=== PATIENT | female | born 1955 | race African-American/Black ===

== ENCOUNTER 2017-04-17 17:32 | Emergency (ER) | payer OTHER ==
[~2017-04-17] VITALS: Ht 165.1 cm; Wt 50.0 kg
[~2017-04-17 17:32] MED LIST: AMLO10TA80 PO; ASPI-1159 PO; ATOR10TA69 PO; FERR324T4 PO; FOLI-43 PO; LEVE500T19 PO; TRIA1TAB92 PO
[2017-04-17] MEDS ORDERED: LIDOCAINE HCL 1%/EPI 1:200,000 30 ML VIAL MC ONE (18:30)
[2017-04-17] MEDS ORDERED: BACITRACIN ZINC OINT UDPKT TOP ONE (18:30)
[2017-04-17] MEDS ORDERED: LIDOCAINE/EPINEPHR/TETRACAINE 3ML TP ONE (18:30)
[2017-04-17 19:25] VITALS: BP 133/87
== END 2017-04-17 21:51 | disposition home or self-care (01) ==
LOC: ER 18:14
DX: S92.812A Other fracture of left foot, initial encounter for closed fracture (principal); S01.112A Laceration without foreign body of left eyelid and periocular area, initial encounter; F17.200 Nicotine dependence, unspecified, uncomplicated; I10 Essential (primary) hypertension; R56.9 Unspecified convulsions; I69.354 Hemiplegia and hemiparesis following cerebral infarction affecting left non-dominant side; Z90.49 Acquired absence of other specified parts of digestive tract; Z88.0 Allergy status to penicillin; W01.0XXA Fall on same level from slipping, tripping and stumbling without subsequent striking against object, initial encounter; Y93.89 Activity, other specified; Y99.8 Other external cause status; Y92.89 Other specified places as the place of occurrence of the external cause
CPT/HCPCS: 12014; 29515; 70450; 73630; 99284; X7700; Z7610

== ENCOUNTER 2017-05-04 10:42 | Emergency (ER) | payer OTHER ==
[~2017-05-04] VITALS: Ht 165.1 cm; Wt 59.0 kg
[2017-05-04 11:02] VITALS: BP 138/85
== END 2017-05-04 14:20 | disposition left against medical advice (07) ==
LOC: ER 13:08
DX: Z53.21 Procedure and treatment not carried out due to patient leaving prior to being seen by health care provider (principal)

== ENCOUNTER 2017-05-05 07:20 | Emergency (ER) | payer OTHER ==
[~2017-05-05] VITALS: Ht 165.1 cm; Wt 57.0 kg
[2017-05-05 07:48] VITALS: BP 139/92
[2017-05-05] MEDS ORDERED: ACETAMINOPHEN 325MG TABLET PO STA (07:52)
[2017-05-05] MEDS ORDERED: ONDANSETRON 4MG ODT PO ONE (08:00)
[2017-05-05 08:25] LABS: CLARITY URINE CLEAR (CLEAR); COLOR URINE YELLOW (YELLOW); KETONES URINE TRACE (NEGATIVE); LEUKOCYTE ESTERASE URINE NEGATIVE (NEGATIVE); NITRITE URINE NEGATIVE (NEGATIVE); OCCULT BLOOD URINE NEGATIVE (NEGATIVE); PROTEIN URINE NEGATIVE (NEGATIVE); SPECIFIC GRAVITY URINE 1.019 (1.005-1.030)
[2017-05-05 08:53] LABS: BASOPHILS % 1.1 % (0.0-2.0); EOSINOPHILS % 2.1 % (0.0-5.0); HEMATOCRIT. 39.3 % (36.0-48.0); HEMOGLOBIN. 13.1 g/dL (12.0-16.0); LYMPHOCYTES % 18.4 % (20.0-50.0); MEAN CORPUSCULAR HEMOGLOBIN 29.9 pg (28.0-32.0); MEAN CORPUSCULAR VOLUME 89.9 fL (81.0-99.0); MEAN PLATELET VOLUME 8.3 fl (7.4-10.4); MONOCYTES % 6.5 % (2.0-8.0); NEUTROPHILS % 71.9 % (40.0-76.0); PLATELET 210 x1000/uL (130-400); RED BLOOD CELL COUNT 4.37 mill/uL (4.2-5.4); RED CELL DISTRIBUTION WIDTH 17.1 % (11.6-14.6)
[2017-05-05 09:00] LABS: PROTHROMBIN TIME 10.3 sec (9.4-11.6)
[2017-05-05 09:15] LABS: CHLORIDE 106 mEq/L (98-107)
== END 2017-05-05 14:10 | disposition home or self-care (01) ==
LOC: ER 07:56
DX: S92.812D Other fracture of left foot, subsequent encounter for fracture with routine healing (principal); S01.112D Laceration without foreign body of left eyelid and periocular area, subsequent encounter; R19.7 Diarrhea, unspecified; R56.9 Unspecified convulsions; F17.200 Nicotine dependence, unspecified, uncomplicated; I10 Essential (primary) hypertension; E87.6 Hypokalemia; Z86.73 Personal history of transient ischemic attack (TIA), and cerebral infarction without residual deficits; Z88.0 Allergy status to penicillin; Z90.49 Acquired absence of other specified parts of digestive tract; W18.39XD Other fall on same level, subsequent encounter; Y93.89 Activity, other specified; Y99.8 Other external cause status; Y92.89 Other specified places as the place of occurrence of the external cause
CPT/HCPCS: 36415; 73502; 73630; 80053; 81003; 83690; 85025; 85610; 99285; Q0162; Z7610

== ENCOUNTER 2017-11-30 14:13 | Emergency (ER) | payer OTHER ==
[~2017-11-30] VITALS: Ht 165.1 cm; Wt 48.0 kg
[~2017-11-30 14:13] MED LIST changes: +ASCO-339 MT; -FERR324T4 PO; +FERR325T6 MT; +LORA10TA7 MT; +LOSA25TA12 MT; +OMEP40CA34 MT; +THIA100T72 MT
[2017-11-30] MEDS ORDERED: SODIUM CHLORIDE 0.9% 1,000 ML IV ONE ×2 (19:33→23:00)
[2017-11-30] MEDS ORDERED: ONDANSETRON HCL 4MG/2ML INJ IV STA (19:33)
[2017-11-30] MEDS ORDERED: ACETAMINOPHEN 325MG TABLET PO STA (19:33)
[2017-11-30] MEDS ORDERED: LEVETIRACETAM 500MG PREMIX 100 ML IV ONE (19:45)
[2017-11-30 20:14] LABS: BASOPHILS % 0.5 % (0.0-2.0); HEMATOCRIT. 35.7 % (36.0-48.0); LYMPHOCYTES % 10.9 % (20.0-50.0); MEAN CORPUSCULAR HEMOGLOBIN 32.2 pg (28.0-32.0); MEAN CORPUSCULAR VOLUME 95.9 fL (81.0-99.0); MEAN PLATELET VOLUME 8.5 fl (7.4-10.4); NEUTROPHILS % 79.6 % (40.0-76.0); PLATELET 191 x1000/uL (130-400); RED BLOOD CELL COUNT 3.72 mill/uL (4.2-5.4); RED CELL DISTRIBUTION WIDTH 16.3 % (11.6-14.6)
[2017-11-30 20:20] LABS: CHLORIDE 100 mEq/L (98-107)
[2017-12-01 02:05] LABS: CLARITY URINE CLEAR (CLEAR); COLOR URINE YELLOW (YELLOW); KETONES URINE NEGATIVE (NEGATIVE); LEUKOCYTE ESTERASE URINE 1+ (NEGATIVE); NITRITE URINE NEGATIVE (NEGATIVE); OCCULT BLOOD URINE NEGATIVE (NEGATIVE); PH URINE 7.5 (4.5-8.0); PROTEIN URINE NEGATIVE (NEGATIVE); SPECIFIC GRAVITY URINE 1.007 (1.005-1.030); UROBILINOGEN URINE 0.2 E.U./dL (0.2-1.0)
[2017-12-01 02:36] VITALS: BP 127/79
== END 2017-12-01 02:43 | disposition home or self-care (01) ==
LOC: ER 14:13
DX: G40.909 Epilepsy, unspecified, not intractable, without status epilepticus (principal); B34.9 Viral infection, unspecified; J02.9 Acute pharyngitis, unspecified; R11.0 Nausea; I10 Essential (primary) hypertension; F17.200 Nicotine dependence, unspecified, uncomplicated; Z86.73 Personal history of transient ischemic attack (TIA), and cerebral infarction without residual deficits; Z90.49 Acquired absence of other specified parts of digestive tract; Z88.0 Allergy status to penicillin; Z79.899 Other long term (current) drug therapy
CPT/HCPCS: 36415; 70450; 71045; 80053; 81003; 83605; 85025; 87040; 87804; 96365; 96375; 99285; J1953; J2405; J7030; 99291

== ENCOUNTER 2018-01-22 13:27 | Emergency (ER) | payer OTHER ==
[~2018-01-22] VITALS: Ht 165.1 cm; Wt 48.7 kg
[2018-01-22] MEDS ORDERED: KETOROLAC 30MG/ML VIAL IM ONE (14:00)
[2018-01-22 15:06] VITALS: BP 137/95
== END 2018-01-22 15:07 | disposition home or self-care (01) ==
LOC: ER 13:27
DX: S60.222A Contusion of left hand, initial encounter (principal); S60.212A Contusion of left wrist, initial encounter; F17.200 Nicotine dependence, unspecified, uncomplicated; I10 Essential (primary) hypertension; W01.0XXA Fall on same level from slipping, tripping and stumbling without subsequent striking against object, initial encounter; Y93.89 Activity, other specified; Y92.89 Other specified places as the place of occurrence of the external cause; Z88.0 Allergy status to penicillin; Z79.82 Long term (current) use of aspirin; Z86.73 Personal history of transient ischemic attack (TIA), and cerebral infarction without residual deficits; Z90.49 Acquired absence of other specified parts of digestive tract
CPT/HCPCS: 73110; 73130; 96372; 99283; J1885

== ENCOUNTER 2018-05-18 22:17 | Emergency (ER) | payer OTHER ==
[~2018-05-18] VITALS: Ht 165.1 cm; Wt 48.0 kg
[2018-05-19] MEDS ORDERED: SODIUM CHLORIDE 0.9% 1,000 ML IV ONE (00:22)
[2018-05-19] MEDS ORDERED: LEVETIRACETAM 500MG PREMIX 100 ML IV ONE (00:30)
[2018-05-19] MEDS ORDERED: DIPHENOXYLATE/ATROPINE 2.5/0.025MG TABLET PO ONE (00:30)
[2018-05-19 00:40] LABS: CHLORIDE 102 mEq/L (98-107)
[2018-05-19 00:42] LABS: BASOPHILS % 1.2 % (0.0-2.0); EOSINOPHILS % 1.2 % (0.0-5.0); HEMATOCRIT. 35.6 % (36.0-48.0); HEMOGLOBIN. 12.2 g/dL (12.0-16.0); LYMPHOCYTES % 34.9 % (20.0-50.0); MEAN CORPUSCULAR HEMOGLOBIN 32.9 pg (28.0-32.0); MEAN CORPUSCULAR VOLUME 96.2 fL (81.0-99.0); MEAN PLATELET VOLUME 8.6 fl (7.4-10.4); MONOCYTES % 8.3 % (2.0-8.0); NEUTROPHILS % 54.4 % (40.0-76.0); PLATELET 163 x1000/uL (130-400); RED CELL DISTRIBUTION WIDTH 13.1 % (11.6-14.6)
[2018-05-19 03:55] VITALS: BP 119/61
== END 2018-05-19 03:56 | disposition home or self-care (01) ==
LOC: ER 22:17
DX: R19.7 Diarrhea, unspecified (principal); G40.909 Epilepsy, unspecified, not intractable, without status epilepticus; I10 Essential (primary) hypertension; F17.200 Nicotine dependence, unspecified, uncomplicated; I69.352 Hemiplegia and hemiparesis following cerebral infarction affecting left dominant side; Z90.49 Acquired absence of other specified parts of digestive tract
CPT/HCPCS: 36415; 80053; 85025; 96365; 96366; 99283; J1953; J7030

== ENCOUNTER 2020-06-24 00:34 | Emergency (ER) | payer OTHER ==
[~2020-06-24] VITALS: Ht 167.6 cm; Wt 68.0 kg
[~2020-06-24 00:34] MED LIST changes: -ASPI-1159 PO; +ASPI-1497 PO; -LOSA25TA12 MT; +LOSA25TA26 MT; +OMEP40CA12 MT; -OMEP40CA34 MT
[2020-06-24] MEDS ORDERED: BACITRACIN ZINC OINT UDPKT TOP ONE (01:45)
[2020-06-24] MEDS ORDERED: LIDOCAINE HCL/EPINEPHRINE 1%-EPI 1:100,000 10 ML VIAL IJ ONE (01:45)
[2020-06-24] MEDS ORDERED: TETANUS, DIPHTHERIA, PERTUSSIS VAC/PF 0.5ML (>7YR OLD) IM ONE (01:45)
[2020-06-24] MEDS ORDERED: LIDOCAINE HCL/EPINEPHRINE 1%-EPI 1:100,000 20 ML VIAL INFIL NR (02:15)
[2020-06-24 05:30] VITALS: BP 118/82
== END 2020-06-24 06:04 | disposition home or self-care (01) ==
LOC: ER 00:34
DX: S01.01XA Laceration without foreign body of scalp, initial encounter (principal); I10 Essential (primary) hypertension; I69.352 Hemiplegia and hemiparesis following cerebral infarction affecting left dominant side; I25.2 Old myocardial infarction; Z79.82 Long term (current) use of aspirin; Z88.0 Allergy status to penicillin; W01.0XXA Fall on same level from slipping, tripping and stumbling without subsequent striking against object, initial encounter; Y93.89 Activity, other specified; Y92.59 Other trade areas as the place of occurrence of the external cause
CPT/HCPCS: 12002; 70450; 90471; 90715; 93005; 99284; J3490; Z7610

== ENCOUNTER 2020-07-13 18:39 | Emergency (ER) | payer OTHER ==
[~2020-07-13] VITALS: Ht 172.7 cm; Wt 59.0 kg
[2020-07-13 21:56] LABS: BASOPHILS % 0.7 % (0.0-2.0); EOSINOPHILS % 1.5 % (0.0-5.0); HEMATOCRIT. 35.5 % (36.0-48.0); HEMOGLOBIN. 11.7 g/dL (12.0-16.0); LYMPHOCYTES % 26.7 % (20.0-50.0); MEAN CORPUSCULAR HEMOGLOBIN 29.6 pg (28.0-32.0); MEAN CORPUSCULAR VOLUME 89.4 fL (81.0-99.0); MEAN PLATELET VOLUME 7.6 fl (7.4-10.4); MONOCYTES % 7.1 % (2.0-8.0); PLATELET 251 x1000/uL (130-400); RED BLOOD CELL COUNT 3.97 mill/uL (4.2-5.4); RED CELL DISTRIBUTION WIDTH 17.2 % (11.6-14.6)
[2020-07-13 22:04] LABS: CHLORIDE 102 mEq/L (98-107)
[2020-07-13 22:09] LABS: ETHANOL BLOOD 225 mg/dL
[2020-07-13 23:28] LABS: CANNABINOID URINE SCREEN NEGATIVE (NEGATIVE)
[2020-07-13 23:29] LABS: *AMPHETAMINES SCREEN URINE NEGATIVE (NEGATIVE); *BARBITURATES SCREEN URINE NEGATIVE (NEGATIVE); *BENZODIAZEPINES SCREEN URINE NEGATIVE (NEGATIVE); *COCAINE SCREEN URINE NEGATIVE (NEGATIVE); METHADONE URINE SCREEN NEGATIVE (NEGATIVE); OPIATES URINE SCREEN NEGATIVE (NEGATIVE)
[2020-07-13 23:30] LABS: PHENCYCLIDINE URINE SCREEN NEGATIVE (NEGATIVE)
[2020-07-13] MEDS ORDERED: POTASSIUM CHLORIDE 20MEQ TABLET SR PO NR (23:30)
[2020-07-14 02:55] VITALS: BP 115/60
== END 2020-07-14 03:03 | disposition home or self-care (01) ==
LOC: ER 18:39
DX: R42 Dizziness and giddiness (principal); F17.200 Nicotine dependence, unspecified, uncomplicated; I25.2 Old myocardial infarction; I10 Essential (primary) hypertension; E11.9 Type 2 diabetes mellitus without complications; Z88.0 Allergy status to penicillin; Z79.899 Other long term (current) drug therapy; Z86.73 Personal history of transient ischemic attack (TIA), and cerebral infarction without residual deficits; Z79.82 Long term (current) use of aspirin
CPT/HCPCS: 36415; 71045; 80053; 80305; 80320; 84484; 85025; 93005; 99285; G0480

== ENCOUNTER 2021-07-29 15:33 | Inpatient (IN) | payer OTHER ==
[~2021-07-29] VITALS: Ht 165.1 cm; Wt 66.2 kg
[~2021-07-29 15:33] MED LIST changes: -OMEP40CA12 MT; +OMEP40CA20 MT
[2021-07-29] MEDS ORDERED: ACETAMINOPHEN 325MG TABLET PO ONE (18:00)
[2021-07-29 21:17] LABS: BASOPHILS % 0.6 % (0.0-2.0); EOSINOPHILS % 1.2 % (0.0-5.0); HEMATOCRIT. 37.5 % (36.0-48.0); HEMOGLOBIN. 12.4 g/dL (12.0-16.0); LYMPHOCYTES % 27.7 % (20.0-50.0); MEAN CORPUSCULAR HEMOGLOBIN 27.3 pg (28.0-32.0); MEAN CORPUSCULAR VOLUME 82.9 fL (81.0-99.0); MEAN PLATELET VOLUME 8.1 fl (7.4-10.4); MONOCYTES % 6.7 % (2.0-8.0); NEUTROPHILS % 63.8 % (40.0-76.0); PLATELET 266 x1000/uL (130-400); RED BLOOD CELL COUNT 4.52 mill/uL (4.2-5.4); RED CELL DISTRIBUTION WIDTH 13.6 % (11.6-14.6)
[2021-07-29 21:22] LABS: CHLORIDE 103 mEq/L (98-107)
[2021-07-30] MEDS ORDERED: IBUP-2029 MT (00:06)
[2021-07-30] MEDS ORDERED: POTASSIUM CHLORIDE 20MEQ TABLET SR PO ONE (00:15)
[2021-07-30] MEDS ORDERED: POTASSIUM CHLORIDE 20MEQ TABLET SR PO SCH (05:45)
[2021-07-30] MEDS ORDERED: IPRATROPIUM/ALBUTEROL 0.5-3(2.5)MG/3ML NEB HHN PRN (14:30)
[2021-07-30] MEDS ORDERED: ONDANSETRON HCL 4MG/2ML INJ IV PRN (14:30)
[2021-07-30] MEDS ORDERED: DOCUSATE SODIUM 100MG CAPSULE PO PRN (14:30)
[2021-07-30] MEDS ORDERED: HYDRALAZINE 20MG/ML VIAL IV PRN (14:30)
[2021-07-30] MEDS ORDERED: GUAIFENESIN 200MG/10ML SUGAR FREE UDC PO PRN (14:30)
[2021-07-30] MEDS: ENOXAPARIN 40MG/0.4ML SYR SUBCUT SCH (15:22)
[2021-07-30] MEDS ORDERED: HYDRALAZINE 10 MG in SODIUM CHLORIDE 0.9% 49.5 ML IV PRN (16:15)
[2021-07-30 18:48] VITALS: BP 129/89
[2021-07-30 20:00] VITALS: BP 134/83
[2021-07-31] VITALS: BP 126/68
[2021-07-31 04:00] VITALS: BP 145/7
[2021-07-31 07:54] LABS: BASOPHILS % 0.9 % (0.0-2.0); EOSINOPHILS % 1.9 % (0.0-5.0); HEMATOCRIT. 36.3 % (36.0-48.0); HEMOGLOBIN. 11.9 g/dL (12.0-16.0); LYMPHOCYTES % 28.5 % (20.0-50.0); MEAN CORPUSCULAR HEMOGLOBIN 27.4 pg (28.0-32.0); MEAN CORPUSCULAR VOLUME 83.7 fL (81.0-99.0); MEAN PLATELET VOLUME 8.6 fl (7.4-10.4); NEUTROPHILS % 62.7 % (40.0-76.0); PLATELET 271 x1000/uL (130-400); RED BLOOD CELL COUNT 4.34 mill/uL (4.2-5.4); RED CELL DISTRIBUTION WIDTH 13.6 % (11.6-14.6)
[2021-07-31 08:08] LABS: CHLORIDE 105 mEq/L (98-107)
[2021-07-31] MEDS: ENOXAPARIN 40MG/0.4ML SYR SUBCUT SCH (14:30)
[2021-07-31] MEDS ORDERED: NALOXONE HCL 0.4MG/ML VIAL IV PRN (19:15)
[2021-07-31] MEDS ORDERED: TRAMADOL 50MG TABLET PO PRN (19:15)
[2021-07-31] MEDS: NICOTINE 21MG PATCH TD SCH (19:20)
[2021-07-31 20:00] VITALS: BP 148/97
[2021-07-31] MEDS ORDERED: DEXTROSE 50% WATER 50ML SYRINGE IV PRN (20:15)
[2021-07-31] MEDS: BLOOD SUGAR DIAGNOSTIC STRIP TEST SCH (21:00)
[2021-07-31] MEDS: INSULIN GLARGINE 100 UNITS/ML SUBCUT SCH (23:31)
[2021-08-01] VITALS (7 sets, daily range): BP systolic 111–143; BP diastolic 71–98
[2021-08-01] MEDS: BLOOD SUGAR DIAGNOSTIC STRIP TEST SCH ×4 (07:31→20:21)
[2021-08-01] MEDS: NICOTINE 21MG PATCH TD SCH (09:00)
[2021-08-01] MEDS: INSULIN GLARGINE 100 UNITS/ML SUBCUT SCH ×2 (10:38→21:02)
[2021-08-01] MEDS: ENOXAPARIN 40MG/0.4ML SYR SUBCUT SCH (14:57)
[2021-08-01] MEDS: MUPIROCIN 2% OINT 22GM NS SCH (20:48)
[2021-08-01] MEDS: GABAPENTIN 300MG CAPSULE PO SCH (22:29)
[2021-08-02] VITALS: BP 123/72
[2021-08-02] MEDS: GABAPENTIN 300MG CAPSULE PO SCH ×3 (05:26→21:27)
[2021-08-02] MEDS: BLOOD SUGAR DIAGNOSTIC STRIP TEST SCH ×7 (07:54→21:27)
[2021-08-02 08:00] VITALS: BP 93/69
[2021-08-02] MEDS: INSULIN GLARGINE 100 UNITS/ML SUBCUT SCH ×2 (09:29→21:28)
[2021-08-02] MEDS: MUPIROCIN 2% OINT 22GM NS SCH ×2 (09:33→21:28)
[2021-08-02 12:01] VITALS: BP 121/70
[2021-08-02] MEDS ORDERED: DEXTROSE 50% WATER 50ML SYRINGE IV PRN (12:15)
[2021-08-02] MEDS: INSULIN LISPRO 100 UNITS/ML SUBCUT SCH ×3 (13:02→21:00)
[2021-08-02] MEDS: ENOXAPARIN 40MG/0.4ML SYR SUBCUT SCH (15:36)
[2021-08-02 16:00] VITALS: BP 118/97
[2021-08-03] MEDS: GABAPENTIN 300MG CAPSULE PO SCH ×3 (05:25→21:59)
[2021-08-03] MEDS: BLOOD SUGAR DIAGNOSTIC STRIP TEST SCH ×7 (07:35→21:00)
[2021-08-03] MEDS: INSULIN LISPRO 100 UNITS/ML SUBCUT SCH ×4 (07:36→22:15)
[2021-08-03 08:00] VITALS: BP 116/74
[2021-08-03] MEDS: NICOTINE 21MG PATCH TD SCH (09:22)
[2021-08-03] MEDS: MUPIROCIN 2% OINT 22GM NS SCH ×2 (09:23→21:59)
[2021-08-03] MEDS: INSULIN GLARGINE 100 UNITS/ML SUBCUT SCH ×2 (09:24→22:14)
[2021-08-03 12:00] VITALS: BP 105/74
[2021-08-03] MEDS: ENOXAPARIN 40MG/0.4ML SYR SUBCUT SCH (14:00)
[2021-08-03 16:00] VITALS: BP 107/52
[2021-08-03 20:00] VITALS: BP 111/58
[2021-08-04 04:00] VITALS: BP 118/58
[2021-08-04] MEDS: GABAPENTIN 300MG CAPSULE PO SCH ×3 (05:48→21:21)
[2021-08-04] MEDS: BLOOD SUGAR DIAGNOSTIC STRIP TEST SCH ×4 (05:48→21:20)
[2021-08-04 06:48] LABS: BASOPHILS % 0.7 % (0.0-2.0); EOSINOPHILS % 2.9 % (0.0-5.0); HEMATOCRIT. 34.7 % (36.0-48.0); HEMOGLOBIN. 11.4 g/dL (12.0-16.0); LYMPHOCYTES % 35.7 % (20.0-50.0); MEAN CORPUSCULAR HEMOGLOBIN 27.4 pg (28.0-32.0); MEAN CORPUSCULAR VOLUME 83.8 fL (81.0-99.0); MEAN PLATELET VOLUME 8.4 fl (7.4-10.4); NEUTROPHILS % 53.7 % (40.0-76.0); PLATELET 266 x1000/uL (130-400); RED BLOOD CELL COUNT 4.14 mill/uL (4.2-5.4); RED CELL DISTRIBUTION WIDTH 13.6 % (11.6-14.6)
[2021-08-04 07:00] LABS: CHLORIDE 105 mEq/L (98-107)
[2021-08-04] MEDS: INSULIN LISPRO 100 UNITS/ML SUBCUT SCH ×4 (07:50→21:00)
[2021-08-04] MEDS: NICOTINE 21MG PATCH TD SCH (08:49)
[2021-08-04] MEDS: MUPIROCIN 2% OINT 22GM NS SCH ×2 (08:50→21:21)
[2021-08-04] MEDS: INSULIN GLARGINE 100 UNITS/ML SUBCUT SCH ×2 (09:04→21:23)
[2021-08-04] MEDS: ENOXAPARIN 40MG/0.4ML SYR SUBCUT SCH (14:12)
[2021-08-04] MEDS ORDERED: NICO-789 TD (16:25)
[2021-08-04] MEDS ORDERED: INSLIS SUBCUT (16:25)
[2021-08-04] MEDS ORDERED: TRAM50TA3 PO (16:25)
[2021-08-04] MEDS ORDERED: GABA-532 PO (16:25)
[2021-08-04] MEDS ORDERED: LANTUSUD SUBCUT (16:25)
[2021-08-04 20:00] VITALS: BP 125/60
[2021-08-05] VITALS: BP 120/55
[2021-08-05 04:00] VITALS: BP 115/55
[2021-08-05] MEDS: GABAPENTIN 300MG CAPSULE PO SCH ×3 (05:50→21:33)
[2021-08-05] MEDS: INSULIN LISPRO 100 UNITS/ML SUBCUT SCH ×4 (05:52→21:00)
[2021-08-05] MEDS: BLOOD SUGAR DIAGNOSTIC STRIP TEST SCH ×4 (05:52→21:16)
[2021-08-05 06:55] LABS: BASOPHILS % 0.6 % (0.0-2.0); EOSINOPHILS % 2.6 % (0.0-5.0); HEMATOCRIT. 32.8 % (36.0-48.0); HEMOGLOBIN. 10.9 g/dL (12.0-16.0); LYMPHOCYTES % 27.2 % (20.0-50.0); MEAN CORPUSCULAR HEMOGLOBIN 27.7 pg (28.0-32.0); MEAN CORPUSCULAR VOLUME 83.4 fL (81.0-99.0); MEAN PLATELET VOLUME 8.7 fl (7.4-10.4); MONOCYTES % 8.8 % (2.0-8.0); NEUTROPHILS % 60.8 % (40.0-76.0); PLATELET 248 x1000/uL (130-400); RED BLOOD CELL COUNT 3.93 mill/uL (4.2-5.4); RED CELL DISTRIBUTION WIDTH 13.3 % (11.6-14.6)
[2021-08-05 07:17] LABS: CHLORIDE 107 mEq/L (98-107)
[2021-08-05 08:00] VITALS: BP 108/76
[2021-08-05] MEDS: ACETAMINOPHEN 325MG TABLET PO PRN (08:33)
[2021-08-05] MEDS: MUPIROCIN 2% OINT 22GM NS SCH ×2 (08:39→21:32)
[2021-08-05] MEDS: NICOTINE 21MG PATCH TD SCH (08:46)
[2021-08-05] MEDS: INSULIN GLARGINE 100 UNITS/ML SUBCUT SCH ×2 (10:35→21:36)
[2021-08-05 12:00] VITALS: BP 116/82
[2021-08-05] MEDS: ENOXAPARIN 40MG/0.4ML SYR SUBCUT SCH (14:49)
[2021-08-05 16:00] VITALS: BP 115/65
[2021-08-05 20:00] VITALS: BP 107/72
[2021-08-06] VITALS: BP 97/56
[2021-08-06] MEDS: BLOOD SUGAR DIAGNOSTIC STRIP TEST SCH ×4 (06:03→21:29)
[2021-08-06] MEDS: GABAPENTIN 300MG CAPSULE PO SCH ×3 (06:03→21:51)
[2021-08-06] MEDS: INSULIN LISPRO 100 UNITS/ML SUBCUT SCH ×4 (07:50→21:00)
[2021-08-06 08:00] VITALS: BP 111/73
[2021-08-06] MEDS: NICOTINE 21MG PATCH TD SCH (09:00)
[2021-08-06] MEDS: MUPIROCIN 2% OINT 22GM NS SCH (09:27)
[2021-08-06] MEDS: INSULIN GLARGINE 100 UNITS/ML SUBCUT SCH ×2 (10:00→21:52)
[2021-08-06 12:00] VITALS: BP 134/76
[2021-08-06] MEDS: ACETAMINOPHEN 325MG TABLET PO PRN (14:08)
[2021-08-06] MEDS: ENOXAPARIN 40MG/0.4ML SYR SUBCUT SCH (14:08)
[2021-08-06 16:00] VITALS: BP 113/73
[2021-08-06 20:00] VITALS: BP 117/78
[2021-08-07] VITALS: BP 121/79
[2021-08-07 04:00] VITALS: BP 118/68
[2021-08-07] MEDS: BLOOD SUGAR DIAGNOSTIC STRIP TEST SCH ×4 (06:09→21:00)
[2021-08-07] MEDS: GABAPENTIN 300MG CAPSULE PO SCH ×3 (06:10→23:39)
[2021-08-07] MEDS: INSULIN LISPRO 100 UNITS/ML SUBCUT SCH ×4 (07:50→21:00)
[2021-08-07] MEDS: NICOTINE 21MG PATCH TD SCH (09:00)
[2021-08-07] MEDS: INSULIN GLARGINE 100 UNITS/ML SUBCUT SCH ×2 (10:00→23:42)
[2021-08-07] MEDS: ENOXAPARIN 40MG/0.4ML SYR SUBCUT SCH (15:06)
[2021-08-07 16:00] VITALS: BP 120/62
[2021-08-07 20:00] VITALS: BP 134/74
[2021-08-08] VITALS: BP 140/87
[2021-08-08 04:00] VITALS: BP 109/67
[2021-08-08] MEDS: GABAPENTIN 300MG CAPSULE PO SCH ×3 (05:49→21:57)
[2021-08-08] MEDS: BLOOD SUGAR DIAGNOSTIC STRIP TEST SCH ×4 (07:04→21:44)
[2021-08-08] MEDS: INSULIN LISPRO 100 UNITS/ML SUBCUT SCH ×4 (07:04→21:56)
[2021-08-08 08:00] VITALS: BP 104/72
[2021-08-08] MEDS: NICOTINE 21MG PATCH TD SCH (08:41)
[2021-08-08] MEDS: INSULIN GLARGINE 100 UNITS/ML SUBCUT SCH ×2 (10:00→21:57)
[2021-08-08 12:00] VITALS: BP 109/67
[2021-08-08] MEDS: ENOXAPARIN 40MG/0.4ML SYR SUBCUT SCH (13:59)
[2021-08-08 16:00] VITALS: BP 114/68
[2021-08-08 16:52] LABS: BASOPHILS % 0.7 % (0.0-2.0); EOSINOPHILS % 1.7 % (0.0-5.0); HEMOGLOBIN. 9.9 g/dL (12.0-16.0); LYMPHOCYTES % 30.5 % (20.0-50.0); MEAN CORPUSCULAR HEMOGLOBIN 27.9 pg (28.0-32.0); MEAN CORPUSCULAR VOLUME 84.9 fL (81.0-99.0); MEAN PLATELET VOLUME 9.1 fl (7.4-10.4); MONOCYTES % 7.6 % (2.0-8.0); NEUTROPHILS % 59.5 % (40.0-76.0); PLATELET 248 x1000/uL (130-400); RED BLOOD CELL COUNT 3.54 mill/uL (4.2-5.4); RED CELL DISTRIBUTION WIDTH 13.6 % (11.6-14.6)
[2021-08-08 17:09] LABS: CHLORIDE 101 mEq/L (98-107)
[2021-08-09] VITALS: BP 129/79
[2021-08-09 04:00] VITALS: BP 123/71
[2021-08-09] MEDS: GABAPENTIN 300MG CAPSULE PO SCH ×3 (06:27→22:18)
[2021-08-09] MEDS: BLOOD SUGAR DIAGNOSTIC STRIP TEST SCH ×4 (06:27→21:00)
[2021-08-09] MEDS: INSULIN LISPRO 100 UNITS/ML SUBCUT SCH ×4 (07:50→22:19)
[2021-08-09 08:00] VITALS: BP 104/61
[2021-08-09] MEDS: NICOTINE 21MG PATCH TD SCH (09:00)
[2021-08-09] MEDS: INSULIN GLARGINE 100 UNITS/ML SUBCUT SCH ×2 (10:15→22:20)
[2021-08-09 12:00] VITALS: BP 123/61
[2021-08-09] MEDS: ENOXAPARIN 40MG/0.4ML SYR SUBCUT SCH (15:59)
[2021-08-09 16:00] VITALS: BP 102/60
[2021-08-09 20:00] VITALS: BP 117/63
[2021-08-10] VITALS: BP 121/75
[2021-08-10 04:00] VITALS: BP 119/71
[2021-08-10] MEDS: GABAPENTIN 300MG CAPSULE PO SCH ×3 (06:51→22:53)
[2021-08-10] MEDS: BLOOD SUGAR DIAGNOSTIC STRIP TEST SCH ×4 (06:52→21:00)
[2021-08-10] MEDS: INSULIN LISPRO 100 UNITS/ML SUBCUT SCH ×4 (07:02→21:00)
[2021-08-10 08:00] VITALS: BP 100/69
[2021-08-10] MEDS: INSULIN GLARGINE 100 UNITS/ML SUBCUT SCH ×2 (08:40→22:54)
[2021-08-10] MEDS: NICOTINE 21MG PATCH TD SCH (08:58)
[2021-08-10] MEDS ORDERED: *PATIENT'S OWN MEDICATION STORAGE XX SCH (11:15)
[2021-08-10 12:00] VITALS: BP 116/68
[2021-08-10] MEDS: ENOXAPARIN 40MG/0.4ML SYR SUBCUT SCH (13:08)
[2021-08-10 16:00] VITALS: BP 114/78
[2021-08-10 20:00] VITALS: BP 117/77
[2021-08-11] MEDS: BLOOD SUGAR DIAGNOSTIC STRIP TEST SCH ×4 (06:28→21:33)
[2021-08-11] MEDS: GABAPENTIN 300MG CAPSULE PO SCH ×3 (06:28→21:32)
[2021-08-11] MEDS: INSULIN LISPRO 100 UNITS/ML SUBCUT SCH ×4 (07:50→21:34)
[2021-08-11 08:00] VITALS: BP 108/71
[2021-08-11] MEDS: NICOTINE 21MG PATCH TD SCH (09:00)
[2021-08-11] MEDS: INSULIN GLARGINE 100 UNITS/ML SUBCUT SCH ×2 (10:34→21:35)
[2021-08-11 12:00] VITALS: BP 132/63
[2021-08-11] MEDS: ENOXAPARIN 40MG/0.4ML SYR SUBCUT SCH (14:28)
[2021-08-11 16:00] VITALS: BP 102/60
[2021-08-11 20:00] VITALS: BP 106/84
[2021-08-12] VITALS: BP 124/72
[2021-08-12 04:00] VITALS: BP 112/61
[2021-08-12] MEDS: GABAPENTIN 300MG CAPSULE PO SCH ×3 (05:44→21:12)
[2021-08-12] MEDS: BLOOD SUGAR DIAGNOSTIC STRIP TEST SCH ×4 (05:44→21:13)
[2021-08-12] MEDS: INSULIN LISPRO 100 UNITS/ML SUBCUT SCH ×4 (07:50→21:14)
[2021-08-12 08:00] VITALS: BP 105/73
[2021-08-12] MEDS: NICOTINE 21MG PATCH TD SCH (09:00)
[2021-08-12] MEDS: INSULIN GLARGINE 100 UNITS/ML SUBCUT SCH ×2 (10:03→21:15)
[2021-08-12 12:00] VITALS: BP 112/77
[2021-08-12 16:00] VITALS: BP 99/62
[2021-08-12 20:00] VITALS: BP 112/60
[2021-08-13] VITALS: BP 133/75
[2021-08-13 04:00] VITALS: BP 115/72
[2021-08-13] MEDS: GABAPENTIN 300MG CAPSULE PO SCH ×3 (06:10→21:31)
[2021-08-13] MEDS: BLOOD SUGAR DIAGNOSTIC STRIP TEST SCH ×4 (06:35→21:00)
[2021-08-13] MEDS: INSULIN LISPRO 100 UNITS/ML SUBCUT SCH ×4 (06:53→21:00)
[2021-08-13 08:00] VITALS: BP 102/71
[2021-08-13] MEDS: NICOTINE 21MG PATCH TD SCH (09:00)
[2021-08-13] MEDS: INSULIN GLARGINE 100 UNITS/ML SUBCUT SCH ×2 (10:00→21:53)
[2021-08-13 12:00] VITALS: BP 114/75
[2021-08-13 16:00] VITALS: BP 123/75
[2021-08-13 20:00] VITALS: BP 134/80
[2021-08-14] VITALS: BP 126/77
[2021-08-14 04:00] VITALS: BP 125/90
[2021-08-14] MEDS: GABAPENTIN 300MG CAPSULE PO SCH ×3 (05:32→21:33)
[2021-08-14] MEDS: BLOOD SUGAR DIAGNOSTIC STRIP TEST SCH ×4 (07:00→21:36)
[2021-08-14 07:19] LABS: BASOPHILS % 0.9 % (0.0-2.0); EOSINOPHILS % 2.4 % (0.0-5.0); HEMATOCRIT. 29.3 % (36.0-48.0); HEMOGLOBIN. 9.7 g/dL (12.0-16.0); MEAN CORPUSCULAR HEMOGLOBIN 27.9 pg (28.0-32.0); MEAN CORPUSCULAR VOLUME 84.6 fL (81.0-99.0); MEAN PLATELET VOLUME 8.8 fl (7.4-10.4); NEUTROPHILS % 51.7 % (40.0-76.0); PLATELET 239 x1000/uL (130-400); RED BLOOD CELL COUNT 3.46 mill/uL (4.2-5.4); RED CELL DISTRIBUTION WIDTH 14.4 % (11.6-14.6)
[2021-08-14 07:45] LABS: CHLORIDE 109 mEq/L (98-107)
[2021-08-14] MEDS: INSULIN LISPRO 100 UNITS/ML SUBCUT SCH ×4 (07:50→21:00)
[2021-08-14 08:00] VITALS: BP 106/78
[2021-08-14] MEDS: NICOTINE 21MG PATCH TD SCH (08:38)
[2021-08-14] MEDS: INSULIN GLARGINE 100 UNITS/ML SUBCUT SCH ×2 (10:56→21:34)
[2021-08-14 12:00] VITALS: BP 128/81
[2021-08-14 15:42] VITALS: BP 135/80
[2021-08-14] MEDS: ENOXAPARIN 40MG/0.4ML SYR SUBCUT SCH (15:44)
[2021-08-14 20:00] VITALS: BP 123/66
[2021-08-15] VITALS: BP 133/68
[2021-08-15 04:00] VITALS: BP 129/70
[2021-08-15] MEDS: GABAPENTIN 300MG CAPSULE PO SCH ×2 (05:41→15:07)
[2021-08-15] MEDS: BLOOD SUGAR DIAGNOSTIC STRIP TEST SCH ×2 (06:51→12:20)
[2021-08-15] MEDS: INSULIN LISPRO 100 UNITS/ML SUBCUT SCH ×2 (07:50→12:50)
[2021-08-15 08:00] VITALS: BP 114/69
[2021-08-15] MEDS: NICOTINE 21MG PATCH TD SCH (09:00)
[2021-08-15] MEDS: INSULIN GLARGINE 100 UNITS/ML SUBCUT SCH (11:14)
[2021-08-15 12:00] VITALS: BP 111/70
[2021-08-15] MEDS: ENOXAPARIN 40MG/0.4ML SYR SUBCUT SCH (15:08)
[2021-08-15 16:00] VITALS: BP 114/66
[2021-08-15 17:09] VITALS: BP 114/66
== END 2021-08-15 16:15 | disposition home or self-care (01) | DRG 351 ==
LOC: ER 15:33 → 6EST 07-30 11:40 → ENRESERV 07-30 13:47 → 6EST 07-30 16:13
PROVIDERS: ADMIT Internal Medicine; ATTEND Internal Medicine
DX: S86.912A Strain of unspecified muscle(s) and tendon(s) at lower leg level, left leg, initial encounter (principal); I69.354 Hemiplegia and hemiparesis following cerebral infarction affecting left non-dominant side; D64.9 Anemia, unspecified; E78.5 Hyperlipidemia, unspecified; E87.6 Hypokalemia; E11.65 Type 2 diabetes mellitus with hyperglycemia; G40.909 Epilepsy, unspecified, not intractable, without status epilepticus; Z20.822 Contact with and (suspected) exposure to COVID-19; K86.1 Other chronic pancreatitis; R79.89 Other specified abnormal findings of blood chemistry; R26.81 Unsteadiness on feet; I10 Essential (primary) hypertension; W18.39XA Other fall on same level, initial encounter; Y93.89 Activity, other specified; Y92.89 Other specified places as the place of occurrence of the external cause; Y99.8 Other external cause status; Z79.899 Other long term (current) drug therapy; I25.2 Old myocardial infarction; Z59.00 Homelessness unspecified; Z88.0 Allergy status to penicillin; Z79.82 Long term (current) use of aspirin; Z90.49 Acquired absence of other specified parts of digestive tract
CPT/HCPCS: 36415; 73502; 73562; 76700; 80048; 80053; 82962; 83036; 83735; 85025; 87426; 97110; 97162; 97164; 97166; 97530; 97535; 99285; J1650; J1815